=== PATIENT | male | born 1995 | race African-American/Black ===

== ENCOUNTER 2018-05-20 00:45 | Emergency (ER) | payer MEDICAID ==
[~2018-05-20] VITALS: Ht 172.7 cm; Wt 72.0 kg
[2018-05-20] MEDS ORDERED: BACITRACIN ZINC OINT UDPKT TOP ONE (01:15)
[2018-05-20] MEDS ORDERED: CEPHALEXIN 500MG CAPSULE PO ONE (01:15)
[2018-05-20] MEDS ORDERED: LIDOCAINE HCL 1% 20ML VIAL (Pyxis) INJ INFIL ONE (01:15)
[2018-05-20] MEDS ORDERED: TETANUS, DIPHTHERIA, PERTUSSIS VAC/PF 0.5ML (>7YR OLD) IM ONE (01:15)
[2018-05-20] MEDS ORDERED: LIDOCAINE HCL/PF 1% 10 MG/ML 5ML VIAL IJ NR (02:00)
[2018-05-20 02:59] VITALS: BP 128/80
== END 2018-05-20 03:01 | disposition home or self-care (01) ==
LOC: ER 00:45
DX: S61.412A Laceration without foreign body of left hand, initial encounter (principal); F12.10 Cannabis abuse, uncomplicated; W22.01XA Walked into wall, initial encounter; Y93.89 Activity, other specified; Y92.018 Other place in single-family (private) house as the place of occurrence of the external cause
CPT/HCPCS: 12004; 73130; 99284; J3490

== ENCOUNTER 2018-05-22 16:06 | Emergency (ER) | payer MEDICAID ==
[~2018-05-22] VITALS: Ht 172.7 cm; Wt 69.0 kg
[2018-05-22 16:45] VITALS: BP 113/66
[2018-05-22] MEDS ORDERED: CEFTRIAXONE SODIUM 1 G/VIAL IM ONE (16:45)
[2018-05-22] MEDS ORDERED: LIDOCAINE HCL/PF 1% 2ML VIAL INFIL ONE (16:45)
[2018-05-22] MEDS ORDERED: IBUPROFEN 800MG TABLET PO ONE (16:45)
[2018-05-22] MEDS ORDERED: LIDOCAINE HCL/PF 1% 10 MG/ML 5ML VIAL IJ NR (16:52)
== END 2018-05-22 17:48 | disposition home or self-care (01) ==
LOC: ER 16:06
DX: L03.012 Cellulitis of left finger (principal); F12.10 Cannabis abuse, uncomplicated
CPT/HCPCS: 96372; 99283; J0696; J3490

== ENCOUNTER 2018-05-25 13:31 | Emergency (ER) | payer MEDICAID ==
[~2018-05-25] VITALS: Ht 172.7 cm; Wt 68.0 kg
[2018-05-25 14:25] VITALS: BP 134/91
== END 2018-05-25 16:06 | disposition home or self-care (01) ==
LOC: ER 13:31
DX: Z48.00 Encounter for change or removal of nonsurgical wound dressing (principal)
CPT/HCPCS: 99281